=== PATIENT | male | born 1990 | race Caucasian/White ===

== ENCOUNTER 2019-05-19 19:33 | Emergency (ER) | payer SELFPAY ==
[2019-05-19 20:05] VITALS: BP 143/89
--- NOTE | 2019-05-19 20:07 | ED ---
GI/ HPI - HPI Summary HPI Summary: 28 yr old male with the complaint of dysuria, and some lower abdominal ache. Onset of symptoms a week ago. The patient has no NVD. No testicular pain. No swelling in the groin. He is sexually active. He has no other complaints. - History of Current Complaint Time Seen by Provider: 05/19/19 19:56 Stated Complaint: PERSONAL Pain Intensity: 6 - Allergy/Home Medications Allergies/Adverse Reactions: Allergies Allergy/AdvReac Type Severity Reaction Status Date / Time latex Allergy Unknown Rash Verified 05/19/19 19:52 PMH/Surg Hx/FS Hx/Imm Hx - Surgical History Surgery Procedure, Year, and Place: pyloric stenosis repair. right leg fxs Infectious Disease History: No Infectious Disease History: Denies: Traveled Outside the [place] in Last 30 Days - Family History Known Family History: Positive: None - Social History Alcohol Use: None Substance Use Type: Reports: Marijuana Substance Use Comment - Amount & Last Used: occasional Smoking Status (MU): Light Every Day Tobacco Smoker Type: Cigarettes Amount Used/How Often: 1/2 ppd Review of Systems Constitutional: Negative Positive: dysuria All Other Systems Reviewed And Are Negative: Yes Physical Exam Triage Information Reviewed: Yes Vital Signs On Initial Exam: Initial Vitals Temp Pulse Resp BP Pulse Ox 99 F 86 16 143/89 99 05/19/19 19:54 05/19/19 19:54 05/19/19 19:54 05/19/19 19:54 05/19/19 19:54 Vital Signs Reviewed: Yes Appearance: Positive: Well-Appearing, No Pain Distress Skin: Positive: Warm, Skin Color Reflects Adequate Perfusion Head/Face: Positive: Normal Head/Face Inspection Eyes: Positive: EOMI ENT: Positive: Normal ENT inspection Neck: Positive: Supple, Nontender Respiratory/Lung Sounds: Positive: Clear to Auscultation, Breath Sounds Present Cardiovascular: Positive: RRR. Negative: Murmur Abdomen Description: Positive: Nontender. Negative: CVA Tenderness (R), CVA Tenderness (L), Distended Male Genital Exam: Positive: Normal Genitalia, No Hernia. Negative: Erythema, Inguinal Tenderness, Scrotum Tenderness (R), Scrotum Tenderness (L), Testicular Tenderness (R), Testicular Tenderness (L), Urethral Discharge Musculoskeletal: Positive: Strength/ROM Intact Neurological: Positive: Sensory/Motor Intact, Alert, Oriented to Person Place, Time, CN Intact II-III, Normal Gait, Speech Normal Psychiatric: Positive: Normal Diagnostics - Vital Signs Vital Signs Temp Pulse Resp BP Pulse Ox 05/19/19 19:54 99 F 86 16 143/89 99 - Laboratory Lab Statement: Any lab studies that have been ordered have been reviewed, and results considered in the medical decision making process. GIGU Course/Dx - Course Course Of Treatment: 28 yr old with dysuria. STI screening sent. - Diagnoses Provider Diagnoses: Dysuria Discharge ED - Sign-Out/Discharge Documenting (check all that apply): Patient Departure All imaging exams completed and their final reports reviewed: No Studies - Discharge Plan Condition: Good Disposition: HOME Patient Education Materials: Dysuria (ED), Hypertension (ED) Referrals: No Primary Care Phys,NOPCP [Primary Care Provider] - [facility] [place] [facility] [Outside] - 2 Days - Billing Disposition and Condition Condition: GOOD Disposition: Home
[2019-05-20 14:26] LABS: HIV 4th Generation Nonreactive (Nonreactive)
--- NOTE | 2019-05-22 09:19 | UC ---
- Progress Note Progress Note: Please call pt to let him know that syphilis and HIV screening results were negative. Course/Dx - Diagnoses Provider Diagnoses: Dysuria Discharge ED - Sign-Out/Discharge Documenting (check all that apply): Post-Discharge Follow Up All imaging exams completed and their final reports reviewed: No Studies - Discharge Plan Condition: Good Disposition: HOME Patient Education Materials: Dysuria (ED), Hypertension (ED) Referrals: [facility] [place] [facility] [Outside] - 2 Days No Primary Care Phys,NOPCP [Primary Care Provider] - - Billing Disposition and Condition Condition: GOOD Disposition: Home
[2019-05-22 13:46] LABS: Chlamydia trachomatis NAA Positive (Negative); Neisseria gonorrhoeae (GC) NAA Negative (Negative)
--- NOTE | 2019-05-22 16:01 | UC ---
- Progress Note Progress Note: Please call and tell him he is positive for gonorrhea and chlamydia and needs treatment- Rocephin and Zithromax. Course/Dx - Diagnoses Provider Diagnoses: Dysuria Discharge ED - Sign-Out/Discharge Documenting (check all that apply): Post-Discharge Follow Up All imaging exams completed and their final reports reviewed: No Studies - Discharge Plan Condition: Good Disposition: HOME Patient Education Materials: Dysuria (ED), Hypertension (ED) Referrals: [facility] [place] [facility] [Outside] - 2 Days No Primary Care Phys,NOPCP [Primary Care Provider] - - Billing Disposition and Condition Condition: GOOD Disposition: Home
--- NOTE | 2019-05-23 08:27 | UC ---
- Progress Note Progress Note: please call the pt.+ for Chlamydia , negative for GC will call in Zithromax 1 gram po x 1 dose please have his partner be seen for testing and tx Course/Dx - Diagnoses Provider Diagnoses: Dysuria Discharge ED - Sign-Out/Discharge Documenting (check all that apply): Patient Departure All imaging exams completed and their final reports reviewed: No Studies - Discharge Plan Condition: Good Disposition: HOME Patient Education Materials: Dysuria (ED), Hypertension (ED) Referrals: [facility] [place] [facility] [Outside] - 2 Days No Primary Care Phys,NOPCP [Primary Care Provider] - - Billing Disposition and Condition Condition: GOOD Disposition: Home
== END 2019-05-19 20:52 | disposition home or self-care (01) ==
LOC: UCCORT 19:33
DX: R30.0 Dysuria (principal); R10.30 Lower abdominal pain, unspecified; F17.210 Nicotine dependence, cigarettes, uncomplicated; Z91.040 Latex allergy status
CPT/HCPCS: 36415; 81003; 86780; 87389; 87491; 87591; 87661; 99202; G0463